=== PATIENT | female | born 1970 ===

== ENCOUNTER 2023-05-22 09:26 | Inpatient (IN) | payer OTHER ==
[~2023-05-22] VITALS: Ht 162.6 cm; Wt 68.0 kg
[2023-05-23 10:29] LABS: URINE APPEARANCE Cloudy; URINE BILIRRUBIN Negative (NEGATIVE); URINE BLOOD Negative; URINE COLOR Yellow; URINE GLUCOSE Negative (NEGATIVE); URINE LEUKOCYTE Negative; URINE NITRATE Negative; URINE PROTEIN Negative (NEGATIVE)
[2023-05-23 10:33] LABS: URINE BACTERIA 32.6 uL (0.0-1933); URINE EPITHELIAL CELLS 3.5 uL (0.0-38.8); URINE WBC 16.9 uL (0.0-23.2)
[2023-05-23 10:48] LABS: URINE RBC 1.2 uL (0.0-20.8)
[2023-05-23 10:50] LABS: HEMATOCRIT 39.7 % (36.0-45.00); HEMOGLOBIN 13.4 g/dL (12.0-15.00); MEAN CELL VOLUME 92.1 fL (80.00-100.00); MEAN CORPUSCULAR HGB CONC 33.7 g/dl (32.0-36.0); PLATELET COUNT 220 K/uL (150-450); RED BLOOD COUNT 4.31 M/uL (4.00-6.00); RED CELL DISTRIBUTION WIDTH 13.3 % (11.5-14.5)
[2023-05-23 11:20] LABS: INR 0.99; PARTIAL THROMBOPLASTIN TIME 25.9 SECONDS (22.0-34.0); PROTHROMBIN TIME 10.4 SECONDS (9.0-11.5)
[2023-05-23 11:27] LABS: ALBUMIN 3.7 gm/dL (3.4-5.0); BILIRUBIN TOTAL 0.49 mg/dL (0.3-1.2); CALCIUM 11.5 mg/dL (8.5-10.1); CREATININE SERUM 0.54 mg/dL (0.55-1.02); GFR 118.09; GLOBULINA 3.8 G/DL (2.4-3.5); POTASSIUM 4.64 mEq/L (3.5-5.1); TOTAL PROTEIN 7.5 gm/dL (6.4-8.2)
== END 2023-05-29 13:42 | disposition home or self-care (01) | DRG 627 ==
LOC: O/R 05-28 05:51 → SURH 05-28 05:51 → SURG 05-28 08:00 → SURH 05-28 14:34
PROVIDERS: ADMIT Surgery; ATTEND Surgery
PROC: 0GTL0ZZ Resection of Right Superior Parathyroid Gland, Open Approach (ICD-10-PCS; principal; 2023-05-28 10:30)
DX: D35.1 Benign neoplasm of parathyroid gland (principal); E04.2 Nontoxic multinodular goiter; E21.0 Primary hyperparathyroidism; Z20.822 Contact with and (suspected) exposure to COVID-19

== ENCOUNTER 2024-05-01 08:27 | Outpatient (CLI) | payer OTHER | END 2024-05-01 08:30 | disposition home or self-care (01) | LOC: SONOGRAMA 08:27 | PROVIDERS: ATTEND Pathology Anatomic Pathology & Clinical Pathology | DX: R59.0 Localized enlarged lymph nodes (principal); R22.1 Localized swelling, mass and lump, neck ==